=== PATIENT | male | born 1965 | race Caucasian/White ===

== ENCOUNTER 2021-12-19 12:25 | Emergency (ER) | payer OTHER, BC, SELFPAY ==
[2021-12-19 12:31] VITALS: BP 145/82; PULSE 71; RESP 16; TEMP 36.8; O2SAT 97; BMI 30.8
--- NOTE | 2021-12-19 12:43 | CRLHL7_ITS ---
For Patients: As a result of the Cures Act, medical imaging exams and procedure reports are released immediately into your electronic medical record. You may view this report before your referring provider. If you have questions, please contact your health care provider. Indication: Fall Technique: AP pelvis and left hip views Comparison: No comparison Findings: Normal alignment. No acute fractures are seen. Dictated by Mckenna Hamm MD @ 12/19/2021 1:32:51 PM (Electronically Signed)
--- NOTE | 2021-12-19 12:45 | ED.LOWEXIN ---
HPI - Extremity Injury (Lower) General Chief Complaint: Extremity Pain/Injury, Lower Stated Complaint: fall, hip injury Time Seen by Provider: 12/19/21 12:27 History of Present Illness HPI Narrative: This 56-year-old male comes in with an injury to his left hip. This occurred last evening. He states that he was standing on a trailer and fell off of it onto his left hip. He was able to get up and ambulate but states that the pain became very severe after sitting for a while. He does not report any other injury except for a superficial abrasion on his left nails. He did not hit his head or have loss of consciousness. Related Data Home Medications Medication Instructions Recorded Confirmed losartan 100 mg tablet mg 12/19/21 paroxetine HCl 10 mg tablet mg PO 12/19/21 venlafaxine 37.5 mg mg PO 12/19/21 capsule,extended release 24 hr Previous Rx's Medication Instructions Recorded ketorolac 10 mg tablet 10 mg PO Q8H 5 days #15 tabs 12/19/21 Allergies Allergy/AdvReac Type Severity Reaction Status Date / Time Penicillins Allergy Verified 12/19/21 12:35 Review of Systems Status of ROS: Reports: 10 or more systems reviewed and unremarkable except as noted in History and below Narrative: Constitutional: No fevers, no weight gain or loss. Eyes: No discharge. No vision changes. HENT: No congestion, no sore throat, no ear pain. Cardiovascular: No chest pain, no palpitations. Respiratory: No shortness of breath, no wheezes, no cough. Gastrointestinal: No abdominal pain, no vomiting, no diarrhea. Genitourinary: No dysuria, no hematuria. Musculoskeletal: Left lateral hip pain as described above. Skin: No rashes, no pruritis. Neurological: No dizziness, weakness, sensory change, speech change. Endo/Heme/Allergies: No bruising or bleeding. No polydipsia. Pysch: no suicidality, no anxiety, no insomnia. All other systems reviewed and are negative. PFSH PFSH Social History Smoking Status: Never smoker How often do you have a drink containing alcohol: 2-3 times a week AUDIT-C Alcohol total score: 3 Non-prescribed substance use: denies use Exam Narrative: Exam Narrative: Constitutional: Well-developed, well-nourished, no acute distress. HEENT: Normocephalic, atraumatic. Neck: Normal range of motion. Nontender. Supple. Heart: Intact distal pulses. Lungs: No chest discomfort. No wheezes, rhonchi, or rales. Abdomen: Nontender. Back: Normal range of motion. Extremities: Normal range of motion. Tenderness overlying the left hip greater trochanter. Mild tenderness when log-rolling his leg. He is able to ambulate. Skin: Intact. No rash. Warm. No erythema or pallor. Neurologic: No altered sensation. No weakness. Alert and oriented. Psychiatric: No suicidality. No anxiety or depression. No insomnia. Nursing notes and vitals signs are reviewed. Const: Vital Signs, click to edit/add: Vital Signs - 24 hr 12/19/21 12:31 Temperature 98.2 F Pulse Rate [Right Pulse Oximeter] 71 Respiratory Rate 16 Blood Pressure [Le ft Upper Arm] 145/82 H Pulse Oximetry 97 Oxygen Delivery Me thod Room Air Course Vital Signs Vital signs: Initial Vital Signs Temperature 98.2 F 12/19/21 12:31 Temperature Source Temporal Artery Scan 12/19/21 12:31 Pulse Rate 71 12/19/21 12:31 Respiratory Rate 16 12/19/21 12:31 Blood Pressure 145/82 H 12/19/21 12:31 Blood Pressure Mean 103 12/19/21 12:31 Blood Pressure Position Sitting 12/19/21 12:31 Pulse Oximetry 97 12/19/21 12:31 Oxygen Delivery Method 12/19/21 12:31 Vital Signs Temperature 98.2 F 12/19/21 12:31 Pulse Rate 71 12/19/21 12:31 Respiratory Rate 16 12/19/21 12:31 Blood Pressure 145/82 H 12/19/21 12:31 Pulse Oximetry 97 12/19/21 12:31 Oxygen Delivery Method 12/19/21 12:31 Temperature 98.2 F 12/19/21 12:31 Pulse Rate 71 12/19/21 12:31 Respiratory Rate 16 12/19/21 12:31 Blood Pressure 145/82 H 12/19/21 12:31 Pulse Oximetry 97 12/19/21 12:31 Oxygen Delivery Method 12/19/21 12:31 MDM - Extremity Injury (Lower) MDM Narrative Medical decision making narrative: This patient comes in with left hip pain because of an injury that occurred last night. X-ray images of the left hip and pelvis show no acute findings. He is ambulatory and states that this occurred while at work yesterday and his boss wanted him to have this checked out. He states that he will use [id number] medicines as needed or directed for pain. I did prescribe Toradol if he wishes to take some prescription medicine. Imaging Data XR R hip and pelvis: Radiologist's impression: Normal alignment. No acute fractures are seen. Discharge Plan Discharge Clinical Impression: Contusion of hip, left Patient Disposition: Home, Self-Care Condition: Stable Instructions: Hip Contusion (ED) Additional Instructions: Take medication as needed and directed. Increase activity as tolerated. Follow up with MD or return if worsening. Prescriptions: New ketorolac 10 mg tablet 10 mg PO Q8H 5 Days Qty: 15 0RF No Action venlafaxine 37.5 mg capsule,extended release 24hr PO paroxetine HCl 10 mg tablet PO losartan 100 mg tablet Follow Up/Referrals: Srini Keys MD [Primary Care Provider] - Stand Alone Forms: [employer] Info Instructions
== END 2021-12-19 14:08 | disposition home or self-care (01) ==
PROVIDERS: Emergency Provider Emergency Medicine Emergency Medical Services; PCP Family Medicine
DX: S70.02XA Contusion of left hip, initial encounter (principal); W17.89XA Other fall from one level to another, initial encounter; Y93.H3 Activity, building and construction; Y92.69 Other specified industrial and construction area as the place of occurrence of the external cause; Y99.0 Civilian activity done for income or pay
CPT/HCPCS: 73502; 99283; 99284

== ENCOUNTER 2022-02-20 17:57 | Observation (INO) | payer BC, SELFPAY ==
[2022-02-20] VITALS (38 sets, daily range): BP systolic 90–160; BP diastolic 54–101; PULSE 55–77; RESP 16–18; TEMP 36.6–36.9; O2SAT 94–98; BMI 32.3; BMI 31.3
--- NOTE | 2022-02-20 18:04 | CRLHL7_ITS ---
For Patients: As a result of the Cures Act, medical imaging exams and procedure reports are released immediately into your electronic medical record. You may view this report before your referring provider. If you have questions, please contact your health care provider. INDICATION: Fall off ladder, hit head TECHNIQUE: CT cervical spine without contrast. COMPARISON: None FINDINGS: Vertebrae: Alignment is normal. There are no fractures or suspicious bony lesions. Discs and facet joints: Multilevel mild disc space narrowing and spurring throughout the mid cervical spine. Facet joints are maintained. Extraspinal findings: Prevertebral soft tissues, visualized airway, and visualized lungs are unremarkable. IMPRESSION: No cervical spine fracture. Please note that all CT scans at this facility use dose modulation, iterative reconstruction, and/or weight-based dosing when appropriate to reduce radiation dose to as low as reasonably achievable. Dictated by Hong Calderón MD @ 02/20/2022 6:31:43 PM (Electronically Signed)
--- NOTE | 2022-02-20 18:04 | CRLHL7_ITS ---
For Patients: As a result of the Cures Act, medical imaging exams and procedure reports are released immediately into your electronic medical record. You may view this report before your referring provider. If you have questions, please contact your health care provider. INDICATION: Fell off ladder, hit head. COMPARISON: None. TECHNIQUE: CT of the head without IV contrast. Coronal and sagittal reconstructions. FINDINGS: No intracranial hemorrhage, mass effect, or evidence of acute infarct. No midline shift. No abnormal extra-axial fluid collections. Normal caliber ventricular system. Small arachnoid cyst in the posterior fossa. Orbits and extraocular muscles are symmetric. The paranasal sinuses and mastoid air cells are clear. No acute fracture identified. Soft tissues are unremarkable. IMPRESSION: : No acute intracranial findings. Please note that all CT scans at this facility use dose modulation, iterative reconstruction, and/or weight-based dosing when appropriate to reduce radiation dose to as low as reasonably achievable. Dictated by Roxane Phelps MD @ 02/20/2022 6:44:00 PM (Electronically Signed)
--- NOTE | 2022-02-20 18:36 | XR_ITS ---
Patient: PATRICK HENDERSON Facility:?[facility] Patient ID:?[id number] Site Patient ID:?[id number]. Site :?[id number] Study:?XRay-Chest PCXR-02/20/2022 7:12:55 PM Ordering Physician:Ulices Hayden Final Report: INDICATION: Trauma. Shortness of breath. TECHNIQUE: Chest 1 views. COMPARISON: None. FINDINGS: Cardiovascular and mediastinum: Heart size and vasculature are normal in caliber and appearance. Lungs and pleural spaces: Lungs are clear. No sign of infiltrate or mass. No sign of pleural effusion. No pneumothorax. Bones and soft tissues: No significant findings. IMPRESSION: No acute cardiopulmonary abnormalities. Dictated by Shad Pate MD @ 02/20/2022 7:32:17 PM Signed by:?Shad Pate MD @02/20/2022 7:32:17 PM (Electronic Signature)
[2022-02-20 18:48] LABS: Basophils Absolute Auto 0.02 K/uL (0.00-0.30); Basophils Percent Auto 0.4 % (0.0-3.0); Eosinophils Absolute Auto 0.13 K/uL (0.00-0.50); Eosinophils Percent Auto 2.6 % (0.0-7.0); Hematocrit 43.1 % (37.0-53.0); Hemoglobin* 15.1 gm/dL (13.5-17.5); Immature Granulocytes Abs Auto 0.02 K/uL (0.00-0.30); Immature Granulocytes Pct Auto 0.4 %; Lymphocytes Absolute Auto 1.63 K/uL (0.90-2.90); Lymphocytes Percent Auto 32.1 % (20-44); Mean Corpuscular HGB Conc 35 gm/dL (32-36); Mean Corpuscular Hemoglobin 32 pg (26-34); Mean Corpuscular Volume 90 fL (80-100); Monocytes Percent Auto 10.4 % (0.0-11.0); Neutrophils Absolute Auto 2.75 K/uL (1.7-7.0); Neutrophils Percent Auto 54.1 % (42.0-72.0); Platelet Count* 222 K/uL (140-440); RDW Coefficient of Variation % 12.5 % (11.5-15.5); White Blood Count* 5.08 K/uL (4.50-11.00)
[2022-02-20 18:55] LABS: Slide Review Reflex No
[2022-02-20] MEDS: 0.9 % SODIUM CHLORIDE 1000 ml 1,000 ML IV (19:00)
[2022-02-20] MEDS: ONDANSETRON ODT 4 MG TAB PO (19:00)
[2022-02-20 19:03] LABS: Chloride* 104 mmol/L (96-114)
[2022-02-20 19:04] LABS: Potassium* 3.9 mmol/L (3.6-5.1); Sodium* 137 mmol/L (135-149)
[2022-02-20 19:06] LABS: Creatinine* 0.7 mg/dL (0.5-1.5); Est. Creatinine Clearance* 120.22; Estimated Glomerular Filt Rate 107 ml/min
[2022-02-20 19:07] LABS: Blood Urea Nitrogen* 18 mg/dL (7-30); Calcium* 8.9 mg/dL (8.4-10.6); Carbon Dioxide* 25 mmol/L (20-32); Glucose* 95 mg/dL (60-115)
[2022-02-20 19:10] LABS: Ethanol* < 0.01 % (0.01-0.03)
[2022-02-20 19:27] LABS: SARS PCR* Negative SARS-CoV-2 (Negative)
--- NOTE | 2022-02-20 19:39 | CRLHL7_ITS ---
For Patients: As a result of the Century Cures Act, medical imaging exams and procedure reports are released immediately into your electronic medical record. You may view this report before your referring provider. If you have questions, please contact your health care provider. Indication: Trauma Technique: Postcontrast CT abdomen and pelvis. 100 cc Isovue 370 intravenous contrast. Please note that all CT scans at this facility use dose modulation, iterative reconstruction, and/or weight-based dosing when appropriate to reduce radiation dose to as low as reasonably achievable. Comparison: None Findings: Mild dependent atelectasis. No pleural effusion or pneumothorax in the lung bases. Increased stool within the rectum. No bowel obstruction or inflammatory change to suggest colitis or enteritis. Normal appendix. Bladder normal. No pelvic soft tissue mass. No adenopathy, free air, free fluid or abscess. Mild incidental stranding in the central mesenteric fat with subcentimeter lymph nodes related to incidental mesenteric panniculitis. Adrenal glands normal. Normal spleen. Gallbladder normal. Subcentimeter cyst within the liver. Punctate stones within each kidney. No hydronephrosis. Degenerative disc disease L5-S1. Impression: No traumatic injury to the abdomen or pelvis. Please note that all CT scans at this facility use dose modulation, iterative reconstruction, and/or weight-based dosing when appropriate to reduce radiation dose to as low as reasonably achievable. Dictated by Hong Calderón MD @ 02/20/2022 8:35:02 PM (Electronically Signed)
--- NOTE | 2022-02-20 21:04 | ED_ITS ---
HPI - General Adult General Date Seen: 02/20/22 Chief complaint: Fall/Minor Trauma Stated complaint: Fell off ladder 10ft hit head Time Seen by Provider: 02/20/22 17:59 Source: patient History of Present Illness HPI narrative: Patient is a 56-year-old male who is brought in by his after a fall from a ladder. He was painting, thinks he was about 10 ft up on the ladder when the bottom of the ladder slid out from under him and the ladder slid down to the floor. He landed on the floor while still on the ladder. Had his chin and cut his chin she thinks on 1 of the rungs of the ladder. She watched this all happened. She did not note any loss of consciousness, seizure activity, vomiting, or other significant events at the time of the fall. She says at 1st he seemed to be okay. She had told him to go shower as he had paint on him as well as blood on his chin. However, when she went into the bathroom to check on him she says that he was standing in the middle of the bathroom, did not remember the fall, and seems generally confused. She says she got him dressed and brought him right to the ER. At the time of arrival in the ER, he is not complaining of headache or neck pain. He does not remember the fall, does not remember that he was painting, repeats questions frequently. He does deny neck or back pain, chest pain. He has some abrasions on his arms bilaterally and on his right leg and notes soreness in those areas. He is ambulatory without difficulty. He is following commands without difficulty, speech is normal. They deny any blood thinners. He takes a medication for high blood pressure. He does not smoke Related Data Home Medications Medication Instructions Recorded Confirmed losartan 100 mg tablet mg 12/19/21 paroxetine HCl 10 mg tablet mg PO 12/19/21 venlafaxine 37.5 mg mg PO 12/19/21 capsule,extended release 24 hr Previous Rx's Medication Instructions Recorded ketorolac 10 mg tablet 10 mg PO Q8H 5 days #15 tabs 12/19/21 Allergies Allergy/AdvReac Type Severity Reaction Status Date / Time Penicillins Allergy Verified 02/20/22 20:25 Review of Systems Status of ROS: Reports: 10 or more systems reviewed and unremarkable except as noted in History and below [facility] Social History Smoking Status: Never smoker How often do you have a drink containing alcohol: 2-3 times a week AUDIT-C Alcohol total score: 3 Non-prescribed substance use: denies use Exam Narrative: Exam Narrative: Primary survey: Airway: Patent. Breathing: Nonlabored. Lungs clear. Circulation: Pulses intact. No external bleeding. Disability: GCS 14. Secondary survey: Vital signs reviewed In general, an alert, nontoxic male. Head: Normocephalic. There is no trauma to the scalp. He has a small laceration on the underside of his chin. Eyes: Pupils are equal reactive. Extraocular movements full. ENT: No facial trauma other than that noted to the chin. Dentition intact. Jaws nontender. No other bony tenderness to the face. Neck: No midline cervical tenderness. No anterior neck trauma. Chest: No visible signs of chest trauma. No tenderness to palpation. Heart regular rate and rhythm. Lungs clear bilaterally. Abdomen: No visible signs of trauma. Soft, nondistended, nontender to palpation. Back: No visible signs of trauma. Nontender to palpation. Pelvis: Stable, nontender. Extremities: He has an abrasion on the left upper arm but no bony tenderness, smaller abrasion on the right elbow. He also has an abrasion on the right thigh. There is no deformity, no swelling in these areas. Distal CMS is normal. Neurologic: Patient is awake, alert, conversant. He has good memory to remote events, he knows where he is, he cannot remember the year. He does know his date. He does not remember events surrounding the fall and cannot retain memory around conversations in the ER. Speech is fluent. Follows commands, moves all extremities equally. Skin: Warm and dry. Const: Vital Signs, click to edit/add: Vital Signs - 24 hr 02/20/22 18:11 02/20/22 18:36 02/20/22 18:22 Temperature 97.9 F Pulse Rate 65 Pulse Rate [Left P ulse Oximeter] 66 Respiratory Rate 16 Blood Pressure 160/96 H Blood Pressure [Ri ght Upper Arm] 148/101 H Pulse Oximetry 94 95 96 Oxygen Delivery Me thod Room Air 02/20/22 18:23 02/20/22 18:26 02/20/22 18:29 Temperature Pulse Rate 64 61 Pulse Rate [Left P ulse Oximeter] Respiratory Rate Blood Pressure 140/91 H 146/97 H Blood Pressure [Ri ght Upper Arm] Pulse Oximetry 96 96 Oxygen Delivery Me thod 02/20/22 18:31 02/20/22 18:34 02/20/22 18:42 Temperature Pulse Rate 67 61 Pulse Rate [Left P ulse Oximeter] Respiratory Rate Blood Pressure 146/93 H 135/84 Blood Pressure [Ri ght Upper Arm] Pulse Oximetry 96 96 Oxygen Delivery Me thod 02/20/22 18:45 02/20/22 18:52 02/20/22 19:00 Temperature Pulse Rate 65 63 61 Pulse Rate [Left P ulse Oximeter] Respiratory Rate Blood Pressure 133/94 H Blood Pressure [Ri ght Upper Arm] Pulse Oximetry 96 96 97 Oxygen Delivery Me thod 02/20/22 19:02 02/20/22 19:11 02/20/22 19:15 Temperature Pulse Rate 65 59 L 59 L Pulse Rate [Left P ulse Oximeter] Respiratory Rate Blood Pressure 140/89 H 139/90 H Blood Pressure [Ri ght Upper Arm] Pulse Oximetry 96 96 96 Oxygen Delivery Me thod 02/20/22 19:22 02/20/22 19:28 02/20/22 19:30 Temperature Pulse Rate 61 69 55 L Pulse Rate [Left P ulse Oximeter] Respiratory Rate Blood Pressure 146/87 H 141/92 H Blood Pressure [Ri ght Upper Arm] Pulse Oximetry 97 98 97 Oxygen Delivery Me thod 02/20/22 19:31 02/20/22 19:33 02/20/22 19:36 Temperature Pulse Rate 56 L 57 L 68 Pulse Rate [Left P ulse Oximeter] Respiratory Rate Blood Pressure 91/54 L 90/54 L 105/66 Blood Pressure [Ri ght Upper Arm] Pulse Oximetry 96 96 95 Oxygen Delivery Me thod 02/20/22 19:37 02/20/22 19:41 02/20/22 19:45 Temperature Pulse Rate 67 75 73 Pulse Rate [Left P ulse Oximeter] Respiratory Rate Blood Pressure 129/76 Blood Pressure [Ri ght Upper Arm] Pulse Oximetry 96 96 96 Oxygen Delivery Me thod 02/20/22 20:00 02/20/22 20:01 02/20/22 20:11 Temperature Pulse Rate 72 72 72 Pulse Rate [Left P ulse Oximeter] Respiratory Rate Blood Pressure 134/85 133/76 Blood Pressure [Ri ght Upper Arm] Pulse Oximetry 98 97 95 Oxygen Delivery Me thod 02/20/22 20:15 02/20/22 20:21 02/20/22 20:22 Temperature Pulse Rate 77 72 71 Pulse Rate [Left P ulse Oximeter] Respiratory Rate Blood Pressure 131/82 Blood Pressure [Ri ght Upper Arm] Pulse Oximetry 96 96 96 Oxygen Delivery Me thod 02/20/22 20:30 02/20/22 20:32 02/20/22 20:42 Temperature Pulse Rate 69 71 69 Pulse Rate [Left P ulse Oximeter] Respiratory Rate Blood Pressure 135/87 127/91 H Blood Pressure [Ri ght Upper Arm] Pulse Oximetry 96 96 96 Oxygen Delivery Me thod 02/20/22 20:45 02/20/22 20:51 02/20/22 21:02 Temperature Pulse Rate 71 73 71 Pulse Rate [Left P ulse Oximeter] Respiratory Rate Blood Pressure 130/83 Blood Pressure [Ri ght Upper Arm] Pulse Oximetry 95 95 97 Oxygen Delivery Me thod Course Course Hospital Course: Following a brief exam, patient did go over immediately to CT for head CT and cervical spine CT which I reviewed in the scanner. I did not see any significant abnormalities and head CT so he was brought back over to the ER for further more complete evaluation. An IV was placed, he was maintained on the monitor and oximetry. I did my secondary survey at that time. Did not appear that he needed any x-rays of the extremities, but I did do a chest x-ray given his significant fall. He did not have any complaints of chest or abdominal pain, no visible trauma, no areas of tenderness, no abnormal vital signs. Therefore, I did not order CT scans at that time. I did order labs, he was hemoglobin was normal, white count was 5, platelets normal, metabolic panel was normal UA was ordered but is pending. Alcohol level was less than 0.1. Fast exam was negative. At the time that I went in to fix laceration on his chin, prior to my performing any kind of anesthesia or other portion of the repair, he said that he was starting to feel lightheaded and nauseated. He looked pale at that time. Looking at the monitor, he was bradycardic at about 50. Initially his blood pressure was normal, but after rechecking it a couple of times he did drop his blood pressure to at one poin 90 systolic. We laid him down, started a L of normal saline, and I elected to order a CT of the abdomen with contrast. I repeated the fast exam which remained negative. CT of the abdomen with contrast by my review did not show any evidence of solid organ injury or free fluid. Final radiology report was negative for any evidence of traumatic injury. He did recover from this episode, heart rate came back up into the 70s and blood pressure returned to the 130s. I do think this represented simply a vasovagal event. Procedure note: The wound was anesthetized with lidocaine with epinephrine, cleaned and explored. I repaired using 5 0 nylon with 2 simple interrupted superficial sutures. He tolerated this well, did not have any further vagal episodes. Sutures will need to be removed in about 5-7 days. Return for any signs of infection. I did speak with Dr. Hernandez about this patient, who felt he would do best at a trauma center, however I also spoke with an ER doc at [facility] who felt that it would be more appropriate to admit him here. She said that essentially they did not have any inpatient beds, patient would remain in the ER for likely his entire time there, and that they did not have anything really to add in terms of an inpatient stay. She did say that if he was still significantly confused tomorrow, that we could call their trauma service to ask for advice regarding follow-up for brain injury. If he worsens significantly neurologically, or for repeat CT were to show changes, we can call them back and at an inpatient to inpatient transfer could be arranged. Vital Signs Vital signs: Initial Vital Signs Temperature 97.9 F 02/20/22 18:11 Temperature Source Temporal Artery Scan 02/20/22 18:11 Pulse Rate 66 02/20/22 18:11 Pulse Rhythm 02/20/22 18:11 Pulse Strength 3+ Normal 02/20/22 18:11 Respiratory Rate 16 02/20/22 18:11 Blood Pressure 148/101 H 02/20/22 18:11 Blood Pressure Mean 116 02/20/22 18:11 Blood Pressure Position Sitting 02/20/22 18:11 Pulse Oximetry 94 02/20/22 18:11 Oxygen Delivery Method 02/20/22 18:11 Vital Signs Temperature 97.9 F 02/20/22 18:11 Pulse Rate 66 02/20/22 18:11 Respiratory Rate 16 02/20/22 18:11 Blood Pressure 148/101 H 02/20/22 18:11 Pulse Oximetry 94 02/20/22 18:11 Oxygen Delivery Method 02/20/22 18:11 Temperature 97.9 F 02/20/22 18:11 Pulse Rate 71 02/20/22 21:02 Respiratory Rate 16 02/20/22 18:11 Blood Pressure 130/83 02/20/22 20:51 Pulse Oximetry 97 02/20/22 21:02 Oxygen Delivery Method 02/20/22 18:11 Medical Decision Making Lab Data Labs: Lab Results 02/20/22 02/20/22 02/20/22 Range/Units 18:30 18:30 18:30 WBC 5.08 (4.50-11.00) K/uL RBC 4.80 (4.30-5.90) m/uL Hgb 15.1 (13.5-17.5) gm/dL Hct 43.1 (37.0-53.0) % MCV 90 (80-100) fL MCH 32 (26-34) pg MCHC 35 (32-36) gm/dL RDW Coeff of Marco A 12.5 (11.5-15.5) % Plt Count 222 (140-440) K/uL Neut % (Auto) 54.1 (42.0-72.0) % Lymph % (Auto) 32.1 (20-44) % [place] % (Auto) 10.4 (0.0-11.0) % Eos % (Auto) 2.6 (0.0-7.0) % Baso % (Auto) 0.4 (0.0-3.0) % Neut # (Auto) 2.75 (1.7-7.0) K/uL Lymph # (Auto) 1.63 (0.90-2.90) K/uL [place] # (Auto) 0.50 (0.00-0.90) K/UL Eos # (Auto) 0.13 (0.00-0.50) K/uL Baso # (Auto) 0.02 (0.00-0.30) K/uL Abs Immat Gran (auto) 0.02 (0.00-0.30) K/uL Imm/Tot Granulo (auto) 0.4 % Sodium 137 (135-149) mmol/L Potassium 3.9 (3.6-5.1) mmol/L Chloride 104 (96-114) mmol/L Carbon Dioxide 25 (20-32) mmol/L BUN 18 (7-30) mg/dL Creatinine 0.7 (0.5-1.5) mg/dL Estimated Creat Clear 120.22 Estimated GFR 107 ml/min Glucose 95 (60-115) mg/dL Calcium 8.9 (8.4-10.6) mg/dL Ethyl Alcohol < 0.01 L (0.01-0.03) % SARS-CoV-2 (PCR) Negative SARS-CoV-2 (Negative) Discharge Plan Discharge Prescriptions: No Action venlafaxine 37.5 mg capsule,extended release 24hr PO paroxetine HCl 10 mg tablet PO losartan 100 mg tablet ketorolac 10 mg tablet 10 mg PO Q8H 5 Days Qty: 15 0RF Follow Up/Referrals: Srini Keys MD [Primary Care Provider] -
[2022-02-20 21:07] LABS: Appearance Urine Clear (Clear); Bilirubin Urine Negative (Negative); Blood Urine Negative (Negative); Color Urine Yellow (Yellow); Glucose Urine Negative (Negative); Ketones Urine Negative (Negative); Leukocyte Esterase Urine Negative (Negative); Nitrite Urine Negative (Negative); Protein Urine Trace (Negative); Specific Gravity Urine 1.015 (1.000-1.030); Urobilinogen Urine 0.2 (0.2-1.0); pH Urine 6.5 (5.0-8.5)
[2022-02-20 21:19] LABS: Amphetamine Screen Urine Negative (Negative); Barbiturate Screen Urine Negative (Negative); Benzodiazepines Screen Urine Negative (Negative); Cannabinoid Screen Urine Negative (Negative); Cocaine Screen Urine Negative (Negative); Methadone Screen Urine Negative (Negative); Methamphetamines Screen Urine Negative (Negative); Opiate Screen Urine Negative (Negative); Oxycodone Screen Urine Negative (Negative); Phencyclidine Screen Urine Negative (Negative); Tricyclic Antidepressant Urine Negative (Negative)
[2022-02-20 21:28] LABS: RBC Urine 0-2 (0-2); Squamous Epithelial Cell Urine Few (None-Few); WBC Urine 0-2 (0-5)
--- NOTE | 2022-02-20 21:52 | PM.IMHP1 ---
Hospitalist- H&P: HPI History of Present Illness Date Seen: 02/20/22 Chief complaint: Fell off ladder 10ft hit head Narrative: Bib Morales is a 56-year-old male who is brought in by his after a fall from a ladder.? He was painting, thinks he was about 10 ft up on the ladder when the bottom of the ladder slid out from under him and the ladder slid down to the floor.? He landed on the floor while still on the ladder.? Had his chin and cut his chin she thinks on 1 of the rungs of the ladder.? She watched this all happened.? She did not note any loss of consciousness, seizure activity, vomiting, or other significant events at the time of the fall.? She says at 1st he seemed to be okay.? She had told him to go shower as he had paint on him as well as blood on his chin.? However, when she went into the bathroom to check on him she says that he was standing in the middle of the bathroom, did not remember the fall, and seems generally confused.? She says she got him dressed and brought him right to the ER.? At the time of arrival in the ER, he is not complaining of headache or neck pain.? He does not remember the fall, does not remember that he was painting, repeats questions frequently.? He does deny neck or back pain, chest pain.? He has some abrasions on his arms bilaterally and on his right leg and notes soreness in those areas.? He is ambulatory without difficulty.? He is following commands without difficulty, speech is normal.? They deny any blood thinners.? He takes a medication for high blood pressure.? He does not smoke. Patient had his chin laceration sutured in the emergency department. He is now feeling better and his memory has improved. reports that he did not recall anything that happened today immediately after he fell. He now recalls painting in his house before he fell. He also remembers watching the football game today. After the fall he has no recall until the emergency department. Review of Systems Narrative: He reports that he has been generally doing well without recent illness or injury other than the fall today. No other recent health concerns. [facility] Medical History (Updated 02/20/22 @ 22:46 by Clint Cross MD) Allergic rhinitis Anxiety Hyperlipidemia Hypertension Lumbar disc herniation Obstructive sleep apnea Surgical History (Updated 02/20/22 @ 21:49 by Clint Cross MD) History of colonoscopy Family History (Updated 02/20/22 @ 22:36 by Clint Cross MD) Father Prostate cancer Brother Prostate cancer Leukemia Mother Amyloidosis Social History (Updated 02/20/22 @ 22:40 by Clint Cross MD) Narrative: Patient presents with his . He is a former user of chewing tobacco. He does not smoke tobacco. He occasionally drinks alcohol, approximately twice a week. He is self-employed doing construction on residential homes. He has 3 children, 1 at home and 2 in college. Both parents have heart disease. Mother with amyloidosis. Father and Brother with prostate cancer. Smoking Status: Never smoker How often do you have a drink containing alcohol: 2-3 times a week AUDIT-C Alcohol total score: 3 Non-prescribed substance use: denies use Meds Home Medications and Allergies Home Medications Medication Instructions Recorded Confirmed Type losartan 100 mg tablet 100 mg PO DAILY 12/19/21 02/20/22 History paroxetine HCl 10 mg tablet 10 mg PO DAILY 12/19/21 02/20/22 History venlafaxine 37.5 mg 37.5 mg PO DAILY 12/19/21 02/20/22 History capsule,extended release 24 hr Allergies Allergy/AdvReac Type Severity Reaction Status Date / Time Penicillins Allergy Verified 02/20/22 20:25 Exam Narrative: Exam Narrative: He is alert and appears in no distress. Speech is normal. He is able to give history with significant details from this afternoon absent in his history. His fills in the details of the events around his fall and head injury. Head is without evidence of trauma except for under his chin he has a small laceration. No other apparent trauma. Eyes are normal. Pupils are equal round reactive to light. Extraocular movements are full. Visual montilla are intact. There is no facial asymmetry. Oropharynx is normal with a small airway. Tongue is midline. He has intact sensation in his face. Neck is supple without mass, adenopathy or tenderness. Respirations are clear to auscultation. Breathing is unlabored. Cardiovascular: S1, S2, regular rate and rhythm. Abdomen bowel sounds active. Abdomen is soft without tenderness or mass. No pelvic tenderness. Right upper extremity has a superficial abrasion. Strength and motion in the shoulder and elbow and wrist are normal. Left upper extremity has a moderately large abrasion on the medial upper arm. Range of motions shoulder elbow and wrist are relatively normal with only mild discomfort in the area of the abrasion. Both upper extremities with intact pulses and sensation distally. Lower extremities notable for bruising and abrasion over the right hip and no right nails. He tolerates range of motion in bilateral hips and bilateral knees without significant discomfort except in his right lateral thigh where he has a bruise. Distal pulses and sensation are intact. Inspection of the back and chest and abdomen without significant evidence of trauma. Moderate amount of paint on his skin.. Const: Vital Signs, click to edit/add: Vital Signs - 24 hr 02/20/22 18:11 02/20/22 18:36 02/20/22 18:22 Temperature 97.9 F Pulse Rate 65 Pulse Rate [Left P ulse Oximeter] 66 Respiratory Rate 16 Blood Pressure 160/96 H Blood Pressure [Ri ght Upper Arm] 148/101 H Pulse Oximetry 94 95 96 Oxygen Delivery Me thod Room Air 02/20/22 18:23 02/20/22 18:26 02/20/22 18:29 Temperature Pulse Rate 64 61 Pulse Rate [Left P ulse Oximeter] Respiratory Rate Blood Pressure 140/91 H 146/97 H Blood Pressure [Ri ght Upper Arm] Pulse Oximetry 96 96 Oxygen Delivery Me thod 02/20/22 18:31 02/20/22 18:34 02/20/22 18:42 Temperature Pulse Rate 67 61 Pulse Rate [Left P ulse Oximeter] Respiratory Rate Blood Pressure 146/93 H 135/84 Blood Pressure [Ri ght Upper Arm] Pulse Oximetry 96 96 Oxygen Delivery Me thod 02/20/22 18:45 02/20/22 18:52 02/20/22 19:00 Temperature Pulse Rate 65 63 61 Pulse Rate [Left P ulse Oximeter] Respiratory Rate Blood Pressure 133/94 H Blood Pressure [Ri ght Upper Arm] Pulse Oximetry 96 96 97 Oxygen Delivery Me thod 02/20/22 19:02 02/20/22 19:11 02/20/22 19:15 Temperature Pulse Rate 65 59 L 59 L Pulse Rate [Left P ulse Oximeter] Respiratory Rate Blood Pressure 140/89 H 139/90 H Blood Pressure [Ri ght Upper Arm] Pulse Oximetry 96 96 96 Oxygen Delivery Me thod 02/20/22 19:22 02/20/22 19:28 02/20/22 19:30 Temperature Pulse Rate 61 69 55 L Pulse Rate [Left P ulse Oximeter] Respiratory Rate Blood Pressure 146/87 H 141/92 H Blood Pressure [Ri ght Upper Arm] Pulse Oximetry 97 98 97 Oxygen Delivery Me thod 02/20/22 19:31 02/20/22 19:33 02/20/22 19:36 Temperature Pulse Rate 56 L 57 L 68 Pulse Rate [Left P ulse Oximeter] Respiratory Rate Blood Pressure 91/54 L 90/54 L 105/66 Blood Pressure [Ri ght Upper Arm] Pulse Oximetry 96 96 95 Oxygen Delivery Me thod 02/20/22 19:37 02/20/22 19:41 02/20/22 19:45 Temperature Pulse Rate 67 75 73 Pulse Rate [Left P ulse Oximeter] Respiratory Rate Blood Pressure 129/76 Blood Pressure [Ri ght Upper Arm] Pulse Oximetry 96 96 96 Oxygen Delivery Me thod 02/20/22 20:00 02/20/22 20:01 02/20/22 20:11 Temperature Pulse Rate 72 72 72 Pulse Rate [Left P ulse Oximeter] Respiratory Rate Blood Pressure 134/85 133/76 Blood Pressure [Ri ght Upper Arm] Pulse Oximetry 98 97 95 Oxygen Delivery Me thod 02/20/22 20:15 02/20/22 20:21 02/20/22 20:22 Temperature Pulse Rate 77 72 71 Pulse Rate [Left P ulse Oximeter] Respiratory Rate Blood Pressure 131/82 Blood Pressure [Ri ght Upper Arm] Pulse Oximetry 96 96 96 Oxygen Delivery Me thod 02/20/22 20:30 02/20/22 20:32 02/20/22 20:42 Temperature Pulse Rate 69 71 69 Pulse Rate [Left P ulse Oximeter] Respiratory Rate Blood Pressure 135/87 127/91 H Blood Pressure [Ri ght Upper Arm] Pulse Oximetry 96 96 96 Oxygen Delivery Me thod 02/20/22 20:45 02/20/22 20:51 02/20/22 21:02 Temperature Pulse Rate 71 73 71 Pulse Rate [Left P ulse Oximeter] Respiratory Rate Blood Pressure 130/83 Blood Pressure [Ri ght Upper Arm] Pulse Oximetry 95 95 97 Oxygen Delivery Me thod 02/20/22 21:31 Temperature Pulse Rate Pulse Rate [Left P ulse Oximeter] Respiratory Rate Blood Pressure 130/85 Blood Pressure [Ri ght Upper Arm] Pulse Oximetry Oxygen Delivery Me thod Documenting provider has reviewed patient's vital signs: yes Hospitalist - H&P: Result Labs Labs: Short CBC 02/20/22 Range/Units 18:30 WBC 5.08 (4.50-11.00) K/uL Hgb 15.1 (13.5-17.5) gm/dL Hct 43.1 (37.0-53.0) % Plt Count 222 (140-440) K/uL BMP 02/20/22 18:30 Sodium 137 Potassium 3.9 Chloride 104 Carbon Dioxide 25 BUN 18 Creatinine 0.7 Glucose 95 Calcium 8.9 Urine 02/20/22 Range/Units 21:00 Urine Color Yellow (Yellow) Urine Appearance Clear (Clear) Urine pH 6.5 (5.0-8.5) Ur Specific [place] 1.015 (1.000-1.030) Urine Protein Trace A (Negative) Urine Glucose (UA) Negative (Negative) Imaging CT scan - head: Radiologist's impression: CT of the cervical spine shows no acute fracture. CT of the head shows no acute intracranial injury. Assessment and Plan Assessment and plan (1) Concussion: Problem comment: Concussion manifested primarily with amnesia. This appears to be improving with some recovery of Memory from this afternoon. He was quite symptomatic in the emergency department. He nearly passed out when he attempted to stand. Observe overnight with neurologic monitoring. Discharge to home if continue to improve. [facility] has been contacted about patient as a trauma patient. If he has deterioration they will accept the patient back as a trauma patient. Status: Acute (2) Posttraumatic amnesia: Problem comment: Anticipate improvement. Status: Acute (3) Chin laceration: Problem comment: Repaired. Sutures out in 5-7 days Status: Acute (4) Abrasions of multiple sites: Problem comment: Clean and cover with bacitracin and gauze. Wound care. Status: Acute (5) Multiple bruises: Problem comment: Patient likely to be fairly stiff for the next few days. Tonight will try to manage with acetaminophen and ice. Would like to avoid opioids well doing neurologic monitoring Status: Acute Assessment and Plan: Admit to the hospital for observation of concussion symptoms. May need outpatient follow-up for concussion. Total time spent is 60 minutes, 40 minutes in coordination of care and discussing with patient and ongoing evaluation management concussion
[2022-02-20] MEDS: ACETAMINOPHEN 325 MG TABLET 650 MG PO (23:16)
[2022-02-20] MEDS: BACITRACIN OINTMENT BULK TUBE 1 APPLIC TOPICAL (23:19)
[2022-02-21] MEDS: ACETAMINOPHEN 325 MG TABLET 650 MG PO ×2 (05:31→12:02)
--- NOTE | 2022-02-21 06:11 | PC.NURSE ---
ADMISSION/SHIFT NOTE: Pt admitted to room 260 after falling off of a ladder at home and sustaining a concussion. Pt has no memory of falling or his trip to the ER, pt is otherwise A&O and answering questions appropriately. PERRLA. Denies N/V, CP, SOB, lightheadedness, and vision changes. Up SBA to the BR and steady on his feet. VSS on RA. CPAP on overnight. PRN Tylenol given for generalized discomfort from the pt's fall. Abrasions to left and right upper arms were cleaned with soapy water, Bacitracin ointment applied and wrapped in Kerlix.
[2022-02-21 07:45] VITALS: BP 128/81; PULSE 64; RESP 18; TEMP 36.9; O2SAT 98
[2022-02-21] MEDS: IBUPROFEN 400 MG TABLET PO (08:47)
[2022-02-21] MEDS: PARoxetine 20 MG TABLET 10 MG PO (08:48)
[2022-02-21] MEDS: VENLAFAXINE HCL ER 37.5 MG CAPSULE PO (08:48)
[2022-02-21] MEDS: LOSARTAN POTASSIUM 50 MG TABLET 100 MG PO (08:48)
--- NOTE | 2022-02-21 09:47 | CRLHL7_ITS ---
For Patients: As a result of the Century Cures Act, medical imaging exams and procedure reports are released immediately into your electronic medical record. You may view this report before your referring provider. If you have questions, please contact your health care provider. INDICATION: Fall from ladder, bruising and pain right hip. TECHNIQUE: Pelvis and right hip 3 views. COMPARISON: CT of the abdomen and pelvis 02/20/2022. FINDINGS: There is a linear lucency in the inferomedial right acetabulum suspicious for a nondisplaced fracture. No dislocation. Mild narrowing of the hip joints. The sacroiliac joints are normal in appearance. Excreted contrast in the urinary bladder for prior exam. Pelvic phleboliths. Vasectomy clips. Soft tissues are unremarkable. IMPRESSION: Acute nondisplaced fracture of the inferomedial right acetabulum. Dictated by Roxane Phelps MD @ 02/21/2022 10:44:55 AM (Electronically Signed)
[2022-02-21 11:00] VITALS: BP 145/93; PULSE 56; RESP 18; TEMP 37.5; O2SAT 98
--- NOTE | 2022-02-21 11:14 | CRLHL7_ITS ---
For Patients: As a result of the Century Cures Act, medical imaging exams and procedure reports are released immediately into your electronic medical record. You may view this report before your referring provider. If you have questions, please contact your health care provider. INDICATION: Fall on 02/20/2022. Worsening on and off headaches. COMPARISON: CT head 02/20/2022. TECHNIQUE: CT of the head without IV contrast. Coronal and sagittal reconstructions. FINDINGS: No intracranial hemorrhage, mass effect, or evidence of acute infarct. No midline shift. No abnormal extra-axial fluid collections. Normal caliber ventricular system. Small arachnoid cyst in the posterior fossa. Orbits and extraocular muscles are symmetric. The paranasal sinuses and mastoid air cells are clear. No acute fracture identified. Soft tissues are unremarkable. IMPRESSION: : No acute intracranial findings. No interval change. Please note that all CT scans at this facility use dose modulation, iterative reconstruction, and/or weight-based dosing when appropriate to reduce radiation dose to as low as reasonably achievable. Dictated by Roxane Phelps MD @ 02/21/2022 12:43:16 PM (Electronically Signed)
[2022-02-21 12:02] VITALS: TEMP 37.5
--- NOTE | 2022-02-21 14:41 | PC.NURSE ---
Pt neurologically intact on day shift. Eval by Dr. Raines and myself. X-ray of right hip completed d/to visible bruise and c/o discomfort at site. Dressings changed after Dr. Raines removed them on rounds. Cleansed sites with soap and water, patted them dry, applied bacitracin, non-stick telfa and secured sites with kerlix. Pt had a CT scan of head. Pt denies dizziness, no nausea, mild headache, pt received prn motrin and tylenol for pain 4 out of 10. Two sutures in chin. Pt requested he be allowed to sleep after returning from CT scan this afternoon. Currently he is placing an order for a late lunch tray. Report will be given to oncoming shift RN.
--- NOTE | 2022-02-21 14:52 | PM.DS1 ---
DS: Providers Provider Time Seen by Provider: 08:20 Date Seen: 02/21/22 Date of admission: 02/20/22 21:36 Primary care physician: Srini Keys MD Admitting Clinician: Jackelyn Jaime MD Attending Physician on discharge: Jackelyn Jaime MD Date of Discharge: 02/21/22 DS: Diagnosis Discharge Diagnosis (1) Concussion: Status: Acute Problem details: Concussion manifested primarily with amnesia. This appears to be improving with some recovery of Memory from this afternoon. He was quite symptomatic in the emergency department. He nearly passed out when he attempted to stand. Better next day, but with bifrontal headache. Repeat head CT negative. [facility] has been contacted about patient as a trauma patient. PT and OT evals unremarkable. Mini cog eval done. (2) Posttraumatic amnesia: Status: Acute (3) Nondisplaced fracture of right acetabulum: Status: Acute Problem details: Nonoperative. Treat with protective weight bearing. Follow up with ortho in 1-2 weeks. (4) Chin laceration: Status: Acute Problem details: Repaired. Sutures out in 5-7 days. (5) Abrasions of multiple sites: Status: Acute Problem details: Clean and cover with bacitracin and gauze. Wound care. (6) Multiple bruises: Status: Acute Problem details: Patient likely to be fairly stiff for the next few days. Manage with acetaminophen and ice. Would like to avoid opioids since it may mask neurologic changes. DS: Summary Hospital Course Hospital Course: 56-year-old male who fell 10-14 feet from a ladder while painting. His saw him fall and notes that he did not lose consciousness, have any seizure activity or vomiting. He recalls falling from the ladder, but not hitting the floor. He has complete amnesia from that point through his initial visit in the ER until just after he got back from the CT scanner. He had a head CT without contrast, cervical spine CT, chest x-ray, abdominal pelvic CT as below. He had some confusion last night along with repeating questions frequently. [facility] was called as was our surgeon. Recommendation was to admit and monitor overnight. Overnight he did fairly well with occasional confusion. This morning he was feeling well other than various pains from bumps and bruises. When he returned from a right hip x-ray, he noted a bifrontal headache that was new. Repeat head CT without contrast was unremarkable. I spoke with Dr. Jalloh from Trauma surgery at [facility] who recommended a PT and OT evaluation along with a mini cog. She also recommended outpatient follow-up with a traumatic brain injury clinic at [place] in 1 month. She recommended no work until he was seen by that clinic. Right hip films showed an acute nondisplaced fracture of the inferior medial right acetabulum. I spoke with Temi Giron from Orthopedics who recommended non operative treatment, protective weight-bearing with a walker and follow up with Ortho in 1-2 weeks as an outpatient. His discharged home today in stable condition with the follow-up as above. Status at Discharge Functional status at discharge: uses cane/walker Overall status at discharge: patient is progressing back to baseline Time Spent with Patient Time attestation: Total time spent providing and/or coordinating discharge services: Time spent: Greater than 30 minutes Exam Narrative: Exam Narrative: General: No acute distress. Awake, alert, oriented x3, although he had to look at the white board to see the month and day. He did know the year and the president. No pallor. No jaundice. Normal cephalic. Chin laceration with stitches, hemostatic. Oropharynx: Clear. Mucous membranes moist. Cardiovascular: Regular rate and rhythm. No murmurs, gallops, or rubs. Respiratory: Clear to auscultation bilaterally. No wheezes or crackles. Abdomen: Bowel sounds present. Soft, nondistended, nontender. Extremities: Right lateral hip ecchymosis. Right lateral knee abrasion and right lower anterior nails abrasion. Medial left elbow has multiple abrasions all parallel. Right elbow has a small hemostatic wound. All of these are hemostatic and without induration. Good range of motion with right hip without pain. Right shoulder has full range of motion without pain, able to do crossover test without pain, nontender to palpation of right shoulder. Const: Vital Signs, click to edit/add: Vital Signs - 24 hr 02/20/22 18:11 02/20/22 18:36 02/20/22 18:22 Temperature 97.9 F Pulse Rate 65 Pulse Rate [Left P ulse Oximeter] 66 Pulse Rate [Right Radial] Respiratory Rate 16 Blood Pressure 160/96 H Blood Pressure [Ri ght Arm] Blood Pressure [Ri ght Upper Arm] 148/101 H Pulse Oximetry 94 95 96 Oxygen Delivery Me thod Room Air 02/20/22 18:23 02/20/22 18:26 02/20/22 18:29 Temperature Pulse Rate 64 61 Pulse Rate [Left P ulse Oximeter] Pulse Rate [Right Radial] Respiratory Rate Blood Pressure 140/91 H 146/97 H Blood Pressure [Ri ght Arm] Blood Pressure [Ri ght Upper Arm] Pulse Oximetry 96 96 Oxygen Delivery Me thod 02/20/22 18:31 02/20/22 18:34 02/20/22 18:42 Temperature Pulse Rate 67 61 Pulse Rate [Left P ulse Oximeter] Pulse Rate [Right Radial] Respiratory Rate Blood Pressure 146/93 H 135/84 Blood Pressure [Ri ght Arm] Blood Pressure [Ri ght Upper Arm] Pulse Oximetry 96 96 Oxygen Delivery Me thod 02/20/22 18:45 02/20/22 18:52 02/20/22 19:00 Temperature Pulse Rate 65 63 61 Pulse Rate [Left P ulse Oximeter] Pulse Rate [Right Radial] Respiratory Rate Blood Pressure 133/94 H Blood Pressure [Ri ght Arm] Blood Pressure [Ri ght Upper Arm] Pulse Oximetry 96 96 97 Oxygen Delivery Me thod 02/20/22 19:02 02/20/22 19:11 02/20/22 19:15 Temperature Pulse Rate 65 59 L 59 L Pulse Rate [Left P ulse Oximeter] Pulse Rate [Right Radial] Respiratory Rate Blood Pressure 140/89 H 139/90 H Blood Pressure [Ri ght Arm] Blood Pressure [Ri ght Upper Arm] Pulse Oximetry 96 96 96 Oxygen Delivery Me thod 02/20/22 19:22 02/20/22 19:28 02/20/22 19:30 Temperature Pulse Rate 61 69 55 L Pulse Rate [Left P ulse Oximeter] Pulse Rate [Right Radial] Respiratory Rate Blood Pressure 146/87 H 141/92 H Blood Pressure [Ri ght Arm] Blood Pressure [Ri ght Upper Arm] Pulse Oximetry 97 98 97 Oxygen Delivery Me thod 02/20/22 19:31 02/20/22 19:33 02/20/22 19:36 Temperature Pulse Rate 56 L 57 L 68 Pulse Rate [Left P ulse Oximeter] Pulse Rate [Right Radial] Respiratory Rate Blood Pressure 91/54 L 90/54 L 105/66 Blood Pressure [Ri ght Arm] Blood Pressure [Ri ght Upper Arm] Pulse Oximetry 96 96 95 Oxygen Delivery Me thod 02/20/22 19:37 02/20/22 19:41 02/20/22 19:45 Temperature Pulse Rate 67 75 73 Pulse Rate [Left P ulse Oximeter] Pulse Rate [Right Radial] Respiratory Rate Blood Pressure 129/76 Blood Pressure [Ri ght Arm] Blood Pressure [Ri ght Upper Arm] Pulse Oximetry 96 96 96 Oxygen Delivery Me thod 02/20/22 20:00 02/20/22 20:01 02/20/22 20:11 Temperature Pulse Rate 72 72 72 Pulse Rate [Left P ulse Oximeter] Pulse Rate [Right Radial] Respiratory Rate Blood Pressure 134/85 133/76 Blood Pressure [Ri ght Arm] Blood Pressure [Ri ght Upper Arm] Pulse Oximetry 98 97 95 Oxygen Delivery Me thod 02/20/22 20:15 02/20/22 20:21 02/20/22 20:22 Temperature Pulse Rate 77 72 71 Pulse Rate [Left P ulse Oximeter] Pulse Rate [Right Radial] Respiratory Rate Blood Pressure 131/82 Blood Pressure [Ri ght Arm] Blood Pressure [Ri ght Upper Arm] Pulse Oximetry 96 96 96 Oxygen Delivery Me thod 02/20/22 20:30 02/20/22 20:32 02/20/22 20:42 Temperature Pulse Rate 69 71 69 Pulse Rate [Left P ulse Oximeter] Pulse Rate [Right Radial] Respiratory Rate Blood Pressure 135/87 127/91 H Blood Pressure [Ri ght Arm] Blood Pressure [Ri ght Upper Arm] Pulse Oximetry 96 96 96 Oxygen Delivery Me thod 02/20/22 20:45 02/20/22 20:51 02/20/22 21:02 Temperature Pulse Rate 71 73 71 Pulse Rate [Left P ulse Oximeter] Pulse Rate [Right Radial] Respiratory Rate Blood Pressure 130/83 Blood Pressure [Ri ght Arm] Blood Pressure [Ri ght Upper Arm] Pulse Oximetry 95 95 97 Oxygen Delivery Me thod 02/20/22 21:31 02/20/22 22:38 02/20/22 22:38 Temperature 98.4 F Pulse Rate Pulse Rate [Left P ulse Oximeter] Pulse Rate [Right Radial] 68 Respiratory Rate 18 16 Blood Pressure 130/85 Blood Pressure [Ri ght Arm] 142/84 H Blood Pressure [Ri ght Upper Arm] Pulse Oximetry 98 97 Oxygen Delivery Me thod Room Air Room Air 02/21/22 07:45 02/21/22 12:02 02/21/22 11:00 Temperature 98.5 F 99.5 F 99.5 F Pulse Rate Pulse Rate [Left P ulse Oximeter] Pulse Rate [Right Radial] 64 56 L Respiratory Rate 18 18 Blood Pressure Blood Pressure [Ri ght Arm] 128/81 145/93 H Blood Pressure [Ri ght Upper Arm] Pulse Oximetry 98 98 Oxygen Delivery Me thod Room Air Room Air Documenting provider has reviewed patient's vital signs: yes DS: Data Data Completed and Pending Completed studies during hospitalization: Ordering Physician: Jackelyn Mcdonnell MD Date of Service: 02/20/22 Procedure(s): CT cervical spine wo con Accession Number(s): [id number] cc: Srini Keys MD; Jackelyn Mcdonnell MD~ For Patients: As a result of the s Act, medical imaging exams and procedure reports are released immediately into your electronic medical record. You may view this report before your referring provider. If you have questions, please contact your health care provider. INDICATION: Fall off ladder, hit head TECHNIQUE: CT cervical spine without contrast. COMPARISON: None FINDINGS: Vertebrae: Alignment is normal. There are no fractures or suspicious bony lesions. Discs and facet joints: Multilevel mild disc space narrowing and spurring throughout the mid cervical spine. Facet joints are maintained. Extraspinal findings: Prevertebral soft tissues, visualized airway, and visualized lungs are unremarkable. IMPRESSION: No cervical spine fracture. Please note that all CT scans at this facility use dose modulation, iterative reconstruction, and/or weight-based dosing when appropriate to reduce radiation dose to as low as reasonably achievable. Dictated by Hong Calderón MD @ 02/20/2022 6:31:43 PM (Electronically Signed) Ordering Physician: Jackelyn Mcdonnell MD Date of Service: 02/20/22 Procedure(s): CT head/brain wo con Accession Number(s): [id number] cc: Sriin Keys MD; Jackelyn Mcdonnell MD~ For Patients: As a result of the 21st Century Cures Act, medical imaging exams and procedure reports are released immediately into your electronic medical record. You may view this report before your referring provider. If you have questions, please contact your health care provider. INDICATION: Fell off ladder, hit head. COMPARISON: None. TECHNIQUE: CT of the head without IV contrast. Coronal and sagittal reconstructions. FINDINGS: No intracranial hemorrhage, mass effect, or evidence of acute infarct. No midline shift. No abnormal extra-axial fluid collections. Normal caliber ventricular system. Small arachnoid cyst in the posterior fossa. Orbits and extraocular muscles are symmetric. The paranasal sinuses and mastoid air cells are clear. No acute fracture identified. Soft tissues are unremarkable. IMPRESSION: : No acute intracranial findings. Please note that all CT scans at this facility use dose modulation, iterative reconstruction, and/or weight-based dosing when appropriate to reduce radiation dose to as low as reasonably achievable. Dictated by Roxane Phelps MD @ 02/20/2022 6:44:00 PM (Electronically Signed) Ordering Physician: Jackelyn Mcdonnell MD Date of Service: 02/20/22 Procedure(s): XR chest 1V portable Accession Number(s): [id number] cc: ~ Patient: PATRICK HENDERSON Facility: [facility] Site . Site : 1965 Study: XRay-Chest PCXR-02/20/2022 7:12:55 PM Ordering Physician: Kecia Hayden Final Report: INDICATION: Trauma. Shortness of breath. TECHNIQUE: Chest 1 views. COMPARISON: None. FINDINGS: Cardiovascular and mediastinum: Heart size and vasculature are normal in caliber and appearance. Lungs and pleural spaces: Lungs are clear. No sign of infiltrate or mass. No sign of pleural effusion. No pneumothorax. Bones and soft tissues: No significant findings. IMPRESSION: No acute cardiopulmonary abnormalities. Dictated by Shad Pate MD @ 02/20/2022 7:32:17 PM Signed by: Shad Pate MD @02/20/2022 7:32:17 PM (Electronic Signature) Ordering Physician: Jackelyn Mcdonnell MD Date of Service: 02/20/22 Procedure(s): CT abdomen pelvis w con Accession Number(s): [id number] cc: Srini Keys MD; Jackelyn Mcdonnell MD~ For Patients: As a result of the Cures Act, medical imaging exams and procedure reports are released immediately into your electronic medical record. You may view this report before your referring provider. If you have questions, please contact your health care provider. Indication: Trauma Technique: Postcontrast CT abdomen and pelvis. 100 cc Isovue 370 intravenous contrast. Please note that all CT scans at this facility use dose modulation, iterative reconstruction, and/or weight-based dosing when appropriate to reduce radiation dose to as low as reasonably achievable. Comparison: None Findings: Mild dependent atelectasis. No pleural effusion or pneumothorax in the lung bases. Increased stool within the rectum. No bowel obstruction or inflammatory change to suggest colitis or enteritis. Normal appendix. Bladder normal. No pelvic soft tissue mass. No adenopathy, free air, free fluid or abscess. Mild incidental stranding in the central mesenteric fat with subcentimeter lymph nodes related to incidental mesenteric panniculitis. Adrenal glands normal. Normal spleen. Gallbladder normal. Subcentimeter cyst within the liver. Punctate stones within each kidney. No hydronephrosis. Degenerative disc disease L5-S1. Impression: No traumatic injury to the abdomen or pelvis. Please note that all CT scans at this facility use dose modulation, iterative reconstruction, and/or weight-based dosing when appropriate to reduce radiation dose to as low as reasonably achievable. Dictated by Hong Calderón MD @ 02/20/2022 8:35:02 PM (Electronically Signed) Ordering Physician: Susan Raines MD Date of Service: 02/21/22 Procedure(s): XR hip RT min 2V Accession Number(s): [id number] cc: Srini Keys MD; Susan Raines MD~ For Patients: As a result of the Cures Act, medical imaging exams and procedure reports are released immediately into your electronic medical record. You may view this report before your referring provider. If you have questions, please contact your health care provider. INDICATION: Fall from ladder, bruising and pain right hip. TECHNIQUE: Pelvis and right hip 3 views. COMPARISON: CT of the abdomen and pelvis 02/20/2022. FINDINGS: There is a linear lucency in the inferomedial right acetabulum suspicious for a nondisplaced fracture. No dislocation. Mild narrowing of the hip joints. The sacroiliac joints are normal in appearance. Excreted contrast in the urinary bladder for prior exam. Pelvic phleboliths. Vasectomy clips. Soft tissues are unremarkable. IMPRESSION: Acute nondisplaced fracture of the inferomedial right acetabulum. Dictated by Roxane Phelps MD @ 02/21/2022 10:44:55 AM (Electronically Signed) Ordering Physician: Susan Raines MD Date of Service: 02/21/22 Procedure(s): CT head/brain wo con Accession Number(s): [id number] cc: Srini Keys MD; Susan Raines MD~ For Patients: As a result of the Cures Act, medical imaging exams and procedure reports are released immediately into your electronic medical record. You may view this report before your referring provider. If you have questions, please contact your health care provider. INDICATION: Fall on 02/20/2022. Worsening on and off headaches. COMPARISON: CT head 02/20/2022. TECHNIQUE: CT of the head without IV contrast. Coronal and sagittal reconstructions. FINDINGS: No intracranial hemorrhage, mass effect, or evidence of acute infarct. No midline shift. No abnormal extra-axial fluid collections. Normal caliber ventricular system. Small arachnoid cyst in the posterior fossa. Orbits and extraocular muscles are symmetric. The paranasal sinuses and mastoid air cells are clear. No acute fracture identified. Soft tissues are unremarkable. IMPRESSION: : No acute intracranial findings. No interval change. Please note that all CT scans at this facility use dose modulation, iterative reconstruction, and/or weight-based dosing when appropriate to reduce radiation dose to as low as reasonably achievable. Dictated by Roxane Phelps MD @ 02/21/2022 12:43:16 PM (Electronically Signed) Labs on day of discharge: Labs from last 24 hours 02/20/22 02/20/22 02/20/22 21:00 21:00 18:30 WBC RBC Hgb Hct MCV MCH MCHC RDW Coeff of Marco A Plt Count Neut % (Auto) Lymph % (Auto) Harding % (Auto) Eos % (Auto) Baso % (Auto) Neut # (Auto) Lymph # (Auto) [place] # (Auto) Eos # (Auto) Baso # (Auto) Abs Immat Gran (auto) Imm/Tot Granulo (auto) Sodium Potassium Chloride Carbon Dioxide BUN Creatinine Estimated Creat Clear Estimated GFR Glucose Calcium Urine Color Yellow Urine Appearance Clear Urine pH 6.5 Ur Specific [place] 1.015 Urine Protein Trace A Urine Glucose (UA) Negative Urine Ketones Negative Urine Blood Negative Urine Nitrite Negative Urine Bilirubin Negative Urine Urobilinogen 0.2 Ur Leukocyte Esterase Negative Urine RBC 0-2 Urine WBC 0-2 Ur Squamous Epith Cells Few Urine Bacteria None Urine Opiates Screen Negative Ur Oxycodone Screen Negative Urine Methadone Screen Negative Ur Propoxyphene Screen Negative Ur Barbiturates Screen Negative U Tricyclic Antidepress Negative Ur Phencyclidine Scrn Negative Ur Amphetamines Screen Negative U Methamphetamines Scrn Negative U Benzodiazepines Scrn Negative Urine Cocaine Screen Negative U Marijuana (THC) Screen Negative Ur Drug Screen Comment See Note Ethyl Alcohol SARS-CoV-2 (PCR) Negative SARS-CoV-2 02/20/22 02/20/22 18:30 18:30 WBC 5.08 RBC 4.80 Hgb 15.1 Hct 43.1 MCV 90 MCH 32 MCHC 35 RDW Coeff of Mraco A 12.5 Plt Count 222 Neut % (Auto) 54.1 Lymph % (Auto) 32.1 Harding % (Auto) 10.4 Eos % (Auto) 2.6 Baso % (Auto) 0.4 Neut # (Auto) 2.75 Lymph # (Auto) 1.63 Harding # (Auto) 0.50 Eos # (Auto) 0.13 Baso # (Auto) 0.02 Abs Immat Gran (auto) 0.02 Imm/Tot Granulo (auto) 0.4 Sodium 137 Potassium 3.9 Chloride 104 Carbon Dioxide 25 BUN 18 Creatinine 0.7 Estimated Creat Clear 120.22 Estimated GFR 107 Glucose 95 Calcium 8.9 Urine Color Urine Appearance Urine pH Ur Specific [place] Urine Protein Urine Glucose (UA) Urine Ketones Urine Blood Urine Nitrite Urine Bilirubin Urine Urobilinogen Ur Leukocyte Esterase Urine RBC Urine WBC Ur Squamous Epith Cells Urine Bacteria Urine Opiates Screen Ur Oxycodone Screen Urine Methadone Screen Ur Propoxyphene Screen Ur Barbiturates Screen U Tricyclic Antidepress Ur Phencyclidine Scrn Ur Amphetamines Screen U Methamphetamines Scrn U Benzodiazepines Scrn Urine Cocaine Screen U Marijuana (THC) Screen Ur Drug Screen Comment Ethyl Alcohol < 0.01 L SARS-CoV-2 (PCR) Discharge Plan Discharge Disposition: Home, Self-Care Date of Admission: 02/20/22 21:36 Attending Provider on Discharge: Susan Raines Primary Care Provider: Srini Keys Condition: Improved Anticipated Discharge Date/Time: 02/21/22 16:36 Discharge Medications: Continued venlafaxine 37.5 mg capsule,extended release 24hr 37.5 mg PO DAILY paroxetine HCl 10 mg tablet 10 mg PO DAILY losartan 100 mg tablet 100 mg PO DAILY albuterol sulfate [Ventolin HFA] 90 mcg/actuation HFA aerosol inhaler 2 inh inhalation Q4H PRN fluticasone propionate [24 Hour Allergy Relief] 50 mcg/actuation spray,suspension 1 spray intranasal DAILY Rx Instructions: administer into each nostril Discharge Orders: Discharge Order (Routine); Ordered 02/21/22 Ordered By: Susan Raines Additional Instructions: Return to ER for chin suture removal in 4-6 days. Outpatient OT evaluation and treatment for concussion rehab. Follow-up with Ortho in 1-2 weeks for nondisplaced right acetabular fracture. Follow-up with brain injury clinic at [facility] in 1 month. No work until seen in that clinic. Use acetaminophen or ibuprofen for pain control. Activity Level: Use Walker and Other Activity Detail: Protective weight bearing of right hip. Discharge Diet: Regular Follow Up Appointments: Srini Keys MD [Primary Care Provider] - (later this week) Forms: [employer] Info Instructions
--- NOTE | 2022-02-21 17:05 | REH.OT ---
OT: Received verbal order for eval post concussion this afternoon and patient seen with spouse presents. Patient participated in [place] Cognitive Assessment 8.1 scorinng which is considered WNL, however pt noting slowed processing of information with executive function and recall. The pt uses humor to make light of situation, however also does note symptoms of light sensitivity, neck tightness, R hip intermittent pain. Spoke with charge nurse and xray showing acute nondisplaced fx of inferomedial R acetabulum, ortho consulted and protective weight bearing with use of walker. Pt seen for instruction in safe use and fit of walker, provided demo walker as pt not wanting to purchase and agreed to use with demo. The pt's spouse reports they have chair to use in shower and she will be assisting with 2 stairs to enter home. He can stay on the main level once home. OT provided recommendations for monitoring of post concussion symptoms and follow up with OP OT/PT for concussion rehab, as well as assist with IADLs until cleared by .
[2022-02-21 17:59] VITALS: BP 130/85; PULSE 71; RESP 18; TEMP 37.5
--- NOTE | 2022-02-21 18:36 | PC.NURSE ---
PATIENT PLEASANT AND COOPERATIVE, FAMILY PRESENT AT BEDSIDE, PATIENT DISCHARGED TO HOME WITH FAMILY, PATIENT AND FAMILY VERBALIZED UNDERSTANDING OF DISCHARGE INFORMATION AND HAD NO FURTHER QUESTIONS AT THIS TIME, NO IV PRESENT, BELONGINGS SENT WITH PATIENT, LEFT VIA WHEELCHAIR AROUND 1830.
== END 2022-02-21 18:38 | disposition home or self-care (01) ==
LOC: ED 18:39 → MEDSURG 21:37
PROVIDERS: Admitting Provider Family Medicine; Emergency Provider Emergency Medicine; PCP Family Medicine; Visit Provider Family Medicine
DX: S32.484A Nondisplaced dome fracture of right acetabulum, initial encounter for closed fracture (principal); S01.81XA Laceration without foreign body of other part of head, initial encounter; R41.3 Other amnesia; S06.0X0A Concussion without loss of consciousness, initial encounter; T07.XXXA Unspecified multiple injuries, initial encounter; R51.9 Headache, unspecified; W11.XXXA Fall on and from ladder, initial encounter; Y93.89 Activity, other specified; R42 Dizziness and giddiness; R11.0 Nausea; I10 Essential (primary) hypertension
CPT/HCPCS: 12011; 36415; 70450; 71045; 72125; 73502; 74177; 80048; 80306; 81001; 82077; 85025; 87635; 94761; 96360; 96361; 97161; 97165; 97535; 99284; 99285; 99291; A9270; G0378; G0379; J7030; Q9967